=== PATIENT | male | born 1965 | race African-American/Black ===

== ENCOUNTER 2017-03-10 00:39 | Inpatient (IN) | payer MEDICARE, MEDICAID ==
[~2017-03-10] VITALS: Ht 182.9 cm; Wt 73.9 kg
[2017-03-10] MEDS ORDERED: ACETAMINOPHEN 325 MG TABLET PO PRN (01:00)
[2017-03-10] MEDS ORDERED: LORAZEPAM 0.5 MG TABLET PO PRN (01:00)
[2017-03-10] MEDS ORDERED: LORA1TAB (01:14)
[2017-03-10] MEDS ORDERED: HALO10TA13 PO (01:14)
[2017-03-10] MEDS ORDERED: SERT50TA12 (01:14)
[2017-03-10] MEDS ORDERED: ACET1TAB23 (01:14)
[2017-03-10] MEDS ORDERED: QUET200T PO (01:14)
[2017-03-10] MEDS ORDERED: HYDR-3024 PO (01:14)
[2017-03-10] MEDS ORDERED: NAPR-1143 (01:14)
[2017-03-10] MEDS ORDERED: TEMA15CA (01:14)
[2017-03-10] MEDS: TEMAZEPAM 7.5 MG CAPSULE PO PRN ×2 (01:31→21:21)
[2017-03-10 01:56] VITALS: BP 116/70
--- NOTE | 2017-03-10 02:36 | NUR ---
ADMISSION NOTES ADMITTED THIS 51Y/O MALE PATIENT ADMIT [facility] , PT. INTIALLY CAME FROM HOME. PT IS ON 5150 HOLD FOR DANGER TO HIM SELF , PER HOLD DANGER TO SELF ATTEMPTING TO OD ON HIS HALDOL, AND TAKING 16 TABS OF HALDOL 10 MG MIXED WITH ALCOHOL, UPON FACE TO FACE ASSESSMENT PATIENT IS A&O X-2,3 AMBULATORY CALM COOPERTIVE DENIES HI AT THIS TIME, PT. IS POOR HISTORIAN, POOR INSIGHT ,POOR JUDGEMENT , POOR HYGINE V/S WNL, NO ACUTE DISTRESS NOTED, HX OF SCHIZOPHRENIA , AWARE AND NOTIFIED OF THE ADMISSION,PT. REFUSED SKIN ASSESSMENT FULL BODY CHECK. PER PT. MY SKIN IS CLEAR INTACT, ENCOURAGED PT. VERBALIZED ANY FEELING CONCERN TO STAFF, ORIENT TO UNIT POLICY, WILL CONTINUE TO MONITOR FOR Q15 SAFETY AND BEHAVIOR.
--- NOTE | 2017-03-10 07:18 | NUR ---
GPS RN NOTES PT. REFUSED FULL BODY CHECK AND REFUSED SKIN ASSESSMENT , PER PT. MY SKIN IS CLEAR INTACT , WILL ENDORSE TO NEXT SHIFT FOR CONTINUITY OF CARE .
[2017-03-10] MEDS: SERTRALINE HCL 50 MG TABLET PO SCH (13:48)
[2017-03-10 16:00] VITALS: BP 145/91
[2017-03-10] MEDS: BENZTROPINE MESYLATE (1 MG) 1 MG TABLET PO SCH (16:34)
[2017-03-10] MEDS: HALOPERIDOL 5 MG TABLET PO SCH (16:34)
[2017-03-10] MEDS: QUETIAPINE FUMARATE 100 MG TABLET PO SCH (16:34)
[2017-03-10] MEDS ORDERED: BENZTROPINE MESYLATE (1 MG) 1 MG TABLET PO SCH (17:30)
--- NOTE | 2017-03-10 19:30 | NUR ---
GPS RN NOTE, RECEIVED PATIENT AWAKE AND IN BED, NO S/S OR COMPLAINTS OF PAIN AT THIS TIME. PATIENT DISPLAYING NO S/S OF APPARENT DISTRESS AT THIS TIME. PATIENT BREATHING IS UNLABORED WITH EQUAL RISE AND FALL OF THE CHEST. PATIENT IS ALERT AND ORIENTED X 3 ON ROOM AIR WITH A SPO2 99%. PATIENT IS MED COMPLIANT, CALM, COOPERATIVE, AND NEEDS REORIENTATION AT TIMES. PATIENT DENIES SI AND HI AT THIS TIME. PATIENT ASSISTED WITH TURNING AND REPOSITIONING Q2HR AND PRN FOR COMFORT AND CIRCULATION. PATIENT HAS NO NEEDS AT THIS TIME. PATIENT EDUCATED ON THE USE OF THE CALL FERNANDEZ. PATIENT BED SIDE RAILS UP X 2 FOR SAFETY, BED IS LOCKED AND LOW, WILL CONTINUE TO MONITOR THIS PATIENT WITH THE HELP OF STAFF.
[2017-03-10 19:44] VITALS: BP 139/69
--- NOTE | 2017-03-10 19:49 | NUR ---
GPS RN NOTE, PATIENT HAS A COMPLAINT THAT ATIVAN 0.5 MG IS INEFFECTIVE AND WOULD LIKE A HIGHER DOSE. PAGED DR GUILLERMO AND INFORMED HER OF MY FINDINGS. DR GUILLERMO ORDERED TO GIVE ATIVAN 1MG PO Q6HR PRN. ALL ORDERS NOTED AND CARRIED OUT WILL CONTINUE TO MONITOR THIS PATIENT.
--- NOTE | 2017-03-10 21:21 | NUR ---
GPS RN NOTE, PATIENT HAS A COMPLAINT OF NOT BEING ABLE TO SLEEP AND IS REQUESTING RESTORIL AT THIS TIME. PATIENT VITAL SIGNS ARE STABLE. GAVE RESTORIL 7.5 MG PO HS ORDERED. WILL REASSESS FOR INSOMNIA AND I WILL CONTINUE TO MONITOR THIS PATIENT.
[2017-03-11] MEDS: LORAZEPAM 1 MG TABLET PO PRN (01:01)
--- NOTE | 2017-03-11 01:01 | NUR ---
GPS RN NOTE, PATIENT HAS A COMPLAINT OF FEELING ANXIOUS AND IS REQUESTING ATIVAN AT THIS TIME. PATIENT VITAL SIGNS ARE STABLE. GAVE ATIVAN 1MG PO Q6HR PRN ORDERED. WILL REASSESS FOR ANXIETY AND I WILL CONTINUE TO MONITOR THIS PATIENT.
[2017-03-11 08:00] VITALS: BP 107/61
[2017-03-11] MEDS: HALOPERIDOL 5 MG TABLET PO SCH ×2 (09:00→16:08)
[2017-03-11] MEDS: QUETIAPINE FUMARATE 100 MG TABLET PO SCH ×2 (09:26→16:08)
[2017-03-11] MEDS: SERTRALINE HCL 50 MG TABLET PO SCH (09:26)
[2017-03-11] MEDS: BENZTROPINE MESYLATE (1 MG) 1 MG TABLET PO SCH ×2 (09:26→16:07)
[2017-03-11 16:25] VITALS: BP 115/73
[2017-03-11 20:18] VITALS: BP 115/72
[2017-03-11] MEDS: TEMAZEPAM 7.5 MG CAPSULE PO PRN (20:46)
[2017-03-12 08:00] VITALS: BP 122/77
[2017-03-12] MEDS: BENZTROPINE MESYLATE (1 MG) 1 MG TABLET PO SCH ×2 (08:26→16:09)
[2017-03-12] MEDS: SERTRALINE HCL 50 MG TABLET PO SCH (08:26)
[2017-03-12] MEDS: QUETIAPINE FUMARATE 100 MG TABLET PO SCH ×2 (08:27→16:10)
[2017-03-12] MEDS: HALOPERIDOL 5 MG TABLET PO SCH ×2 (08:32→16:10)
[2017-03-12 15:54] VITALS: BP 119/64
[2017-03-12] MEDS: TEMAZEPAM 7.5 MG CAPSULE PO PRN (20:02)
[2017-03-12 20:15] VITALS: BP 123/68
--- NOTE | 2017-03-12 21:28 | NUR ---
PATIENT C/O DIFFICULTY FALLING ASLEEP,REQUESTED AND GIVEN RESTORIL7.5 MG PO AND WITH GOOD EFFECT.NO S/S OF ACUTE DISTRESS NOTED.
[2017-03-13 08:00] VITALS: BP_SYST 110; BP_SYST 116; BP_DIAS 66; BP_DIAS 74
[2017-03-13] MEDS: BENZTROPINE MESYLATE (1 MG) 1 MG TABLET PO SCH ×2 (08:30→16:46)
[2017-03-13] MEDS: QUETIAPINE FUMARATE 100 MG TABLET PO SCH (08:30)
[2017-03-13] MEDS: HALOPERIDOL 5 MG TABLET PO SCH ×2 (08:30→16:46)
[2017-03-13] MEDS: SERTRALINE HCL 50 MG TABLET PO SCH (08:32)
--- NOTE | 2017-03-13 10:35 | NUR ---
Discharge Planning: VANE coordinated with Jay from [facility] to come an assess pts appropriateness for their facility, on this date. SW gathered that pt may not be an appropriate fit. SW will follow up to ensure pt is properly and safely placed.
--- NOTE | 2017-03-13 10:49 | NUR ---
Discharge Planning: VANE coordinated with Brendon Armendariz LVN, from [facility] to assess pts appropriateness for their facility, on this date. VANE gathered that pt may not be an appropriate fit however Sw was asked to fax inquiry for further review. VANE faxed inquiry to . VANE will follow up to ensure pt is properly and safely placed.
--- NOTE | 2017-03-13 13:50 | NUR ---
Initial Discharge Plan: Pt is currently homeless. Prior to hospitalization, pt was staying at the [facility] on [address]. Pt does not have a telephone contact #. Pt is looking for placement (i.e. [facility] facility). Pt does not want to return to the downtown area in [place]. VANE attempted to speak to pts mother, Alycia Watson , however she was unavailable. VANE left a message asking for a call back. VANE will follow up to ensure pt is safely and properly discharged.
[2017-03-13 15:59] VITALS: BP 110/61
--- NOTE | 2017-03-13 17:17 | NUR ---
RN Note: Patient was agitated because he did not receive his [address] Pantoja and received a Telephone order from Dr. Pantoja for seroquel 150mg x1 now.
[2017-03-13] MEDS ORDERED: QUETIAPINE FUMARATE 100 MG TABLET PO ONE (17:30)
[2017-03-13 20:00] VITALS: BP_SYST 129; BP_SYST 144; BP_DIAS 77; BP_DIAS 79
[2017-03-13] MEDS: TEMAZEPAM 7.5 MG CAPSULE PO PRN (20:22)
[2017-03-13] MEDS: MAG HYDROX/AL HYDROX/SIMETH 30 ML UDC PO PRN (20:23)
[2017-03-14 08:00] VITALS: BP 126/86
[2017-03-14] MEDS: BENZTROPINE MESYLATE (1 MG) 1 MG TABLET PO SCH ×2 (09:24→16:54)
[2017-03-14] MEDS: QUETIAPINE FUMARATE 100 MG TABLET PO SCH ×2 (09:24→13:19)
[2017-03-14] MEDS: SERTRALINE HCL 50 MG TABLET PO SCH (09:24)
[2017-03-14] MEDS: HALOPERIDOL 5 MG TABLET PO SCH ×3 (09:24→16:54)
[2017-03-14] MEDS: MAGNESIUM HYDROXIDE 30 ML UDC PO PRN (18:30)
[2017-03-14 21:35] VITALS: BP 125/68
[2017-03-14] MEDS: TEMAZEPAM 7.5 MG CAPSULE PO PRN (21:51)
[2017-03-14] MEDS ORDERED: QUETIAPINE FUMARATE 100 MG TABLET PO SCH (22:00)
[2017-03-15 08:00] VITALS: BP 121/95
[2017-03-15] MEDS: SERTRALINE HCL 50 MG TABLET PO SCH (09:26)
[2017-03-15] MEDS: BENZTROPINE MESYLATE (1 MG) 1 MG TABLET PO SCH ×2 (09:26→17:13)
[2017-03-15] MEDS: QUETIAPINE FUMARATE 100 MG TABLET PO SCH ×2 (09:26→12:36)
[2017-03-15] MEDS: HALOPERIDOL 5 MG TABLET PO SCH ×3 (09:27→17:13)
[2017-03-15 16:00] VITALS: BP 142/80
[2017-03-15] MEDS: MAG HYDROX/AL HYDROX/SIMETH 30 ML UDC PO PRN (19:40)
[2017-03-15 20:00] VITALS: BP 116/74
[2017-03-15] MEDS: TEMAZEPAM 7.5 MG CAPSULE PO PRN (21:07)
[2017-03-15] MEDS ORDERED: QUETIAPINE FUMARATE 100 MG TABLET PO SCH (22:00)
--- NOTE | 2017-03-16 06:16 | NUR ---
Pt has been with depressed mood & anhedonic but compliant & redirectable.
[2017-03-16 08:00] VITALS: BP 108/61
[2017-03-16] MEDS: SERTRALINE HCL 50 MG TABLET PO SCH (09:12)
[2017-03-16] MEDS: BENZTROPINE MESYLATE (1 MG) 1 MG TABLET PO SCH ×2 (09:12→17:39)
[2017-03-16] MEDS: HALOPERIDOL 5 MG TABLET PO SCH ×3 (09:13→17:40)
[2017-03-16] MEDS: QUETIAPINE FUMARATE 100 MG TABLET PO SCH ×3 (09:13→21:42)
[2017-03-16 16:00] VITALS: BP 122/72
[2017-03-16 19:57] VITALS: BP 123/67
[2017-03-16] MEDS: MAG HYDROX/AL HYDROX/SIMETH 30 ML UDC PO PRN (21:54)
[2017-03-17] MEDS: LORAZEPAM 1 MG TABLET PO PRN (06:44)
[2017-03-17 08:00] VITALS: BP 129/74
[2017-03-17] MEDS: SERTRALINE HCL 50 MG TABLET PO SCH (08:22)
[2017-03-17] MEDS: QUETIAPINE FUMARATE 100 MG TABLET PO SCH ×4 (08:22→21:58)
[2017-03-17] MEDS: BENZTROPINE MESYLATE (1 MG) 1 MG TABLET PO SCH ×2 (08:22→17:12)
[2017-03-17] MEDS: HALOPERIDOL 5 MG TABLET PO SCH ×3 (08:22→17:12)
--- NOTE | 2017-03-17 11:37 | NUR ---
Discharge Planning: SW received a call from Yvan from [facility] informing that pt was denied acceptance to facility "due to his past suicide attempts and his history of overdosing." Pt will continue to work to ensure pt is properly and safely discharged.
[2017-03-17 16:13] VITALS: BP 105/54
[2017-03-17] MEDS: MAG HYDROX/AL HYDROX/SIMETH 30 ML UDC PO PRN (19:25)
[2017-03-17 19:51] VITALS: BP 128/75
[2017-03-18 08:00] VITALS: BP 116/68
[2017-03-18] MEDS: SERTRALINE HCL 50 MG TABLET PO SCH (08:27)
[2017-03-18] MEDS: BENZTROPINE MESYLATE (1 MG) 1 MG TABLET PO SCH ×2 (08:27→17:08)
[2017-03-18] MEDS: HALOPERIDOL 5 MG TABLET PO SCH ×3 (08:27→17:09)
[2017-03-18] MEDS: LORAZEPAM 1 MG TABLET PO PRN ×2 (08:27→18:23)
[2017-03-18] MEDS: QUETIAPINE FUMARATE 100 MG TABLET PO SCH ×4 (08:32→21:30)
--- NOTE | 2017-03-18 09:23 | NUR ---
RN-CO: ATIVAN 1 MG PO GIVEN FOR AGITATION.
[2017-03-18 16:12] VITALS: BP 103/59
--- NOTE | 2017-03-18 16:50 | NUR ---
Discharge Planning: VANE spoke to Niki from [facility] Fax # to confirm pts placement once he is ready for discharge. Pt will discharge tomorrow. Scheduling to be arranged. SW will follow up to ensure pt is properly and safely discharged.
--- NOTE | 2017-03-18 18:24 | NUR ---
RN-CO: ATIVAN 1 MG PO GIVEN FOR ANXIETY.
[2017-03-18 20:08] VITALS: BP 105/69
[2017-03-19 08:00] VITALS: BP 115/71
[2017-03-19] MEDS: QUETIAPINE FUMARATE 100 MG TABLET PO SCH ×2 (08:32→12:45)
[2017-03-19] MEDS: BENZTROPINE MESYLATE (1 MG) 1 MG TABLET PO SCH (08:32)
[2017-03-19] MEDS: SERTRALINE HCL 50 MG TABLET PO SCH (08:32)
[2017-03-19] MEDS: HALOPERIDOL 5 MG TABLET PO SCH ×2 (08:32→12:45)
[2017-03-19] MEDS: MAGNESIUM HYDROXIDE 30 ML UDC PO PRN (09:56)
--- NOTE | 2017-03-19 11:33 | NUR ---
Discharge Note: Patient will be discharged to [facility], [address] [place] [address]; at 1pm (trip # [id number]). Pt has been notified and is in agreement. Pts mother, Alycia Watson has also been notified, per pt request. SW spoke to pts mother who agreed to pt being discharged to a facility "so he can maybe get better." Pts Behavioral Health Therapist at the facility will be Dr. Moody Robison, [address] [facility]. [facility] [address]; and Psychiatrist, Dr. Armen Mane, [address] [facility] [address]; [phone].
[2017-03-19 13:00] VITALS: BP 126/68
== END 2017-03-19 13:14 | DRG 885 ==
LOC: GPS 00:39
PROVIDERS: ADMIT Psychiatry & Neurology Psychosomatic Medicine; ATTEND Psychiatry & Neurology Psychosomatic Medicine
DX: F20.9 Schizophrenia, unspecified (principal); F33.2 Major depressive disorder, recurrent severe without psychotic features; F14.10 Cocaine abuse, uncomplicated; F10.10 Alcohol abuse, uncomplicated; F29 Unspecified psychosis not due to a substance or known physiological condition; Z73.6 Limitation of activities due to disability; Z85.118 Personal history of other malignant neoplasm of bronchus and lung; Z92.3 Personal history of irradiation; Z92.21 Personal history of antineoplastic chemotherapy; L84 Corns and callosities; Z79.899 Other long term (current) drug therapy; T43.4X2 Poisoning by butyrophenone and thiothixene neuroleptics, intentional self-harm; T51.9 Toxic effect of unspecified alcohol
CPT/HCPCS: 73620-TC